=== PATIENT | male | born 1950 | race Caucasian/White ===

== ENCOUNTER 2022-03-13 11:32 | Emergency (ER) | payer MEDICARE ==
[~2022-03-13] VITALS: Ht 175.3 cm; Wt 72.7 kg
[2022-03-13] MEDS ORDERED: ibuprofen tablet 400 MG TABLET PO ONE (12:10)
[2022-03-13] MEDS ORDERED: ondansetron 4mg rapidly disintigrating tab PO ONE (12:30)
[2022-03-13] MEDS ORDERED: sulfamethoxazole/trimethoprim DS (800/160mg) tablet PO ONE (12:30)
[2022-03-13] MEDS ORDERED: ondansetron/PF 4mg/2ml inj IV ONE ×2 (14:20→17:39)
[2022-03-13] MEDS ORDERED: ceFAZolin 1000mg inj IV ONE (14:20)
[2022-03-13] MEDS ORDERED: morphine 4 MG/ML inj SYRINge IV ONE ×2 (14:20→17:39)
[2022-03-13] MEDS ORDERED: ceFAZolin inj. 2,000 MG in dextrose 5%-water 100 ML IV ONE (14:25)
[2022-03-13 14:41] LABS: BASOPHILS # (AUTO) 0.1 X10'3 (0-0.2); BASOPHILS % (AUTO) 0.3 % (0-1); EOSINOPHILS % (AUTO) 0.1 % (0-6); HEMATOCRIT 38.2 % (42.0-52.0); HEMOGLOBIN 12.5 g/dl (14.0-17.9); LYMPHOCYTES % (AUTO) 10.7 % (21-51); MEAN CORPUSCULAR HEMOGLOBIN 29.3 PG (27.0-31.0); MEAN CORPUSCULAR HGB CONC 32.7 g/dL (33.0-36.5); MEAN CORPUSCULAR VOLUME 89.6 FL (78-98); MEAN PLATELET VOLUME 8.1 FL (7.4-10.4); MONOCYTES # (AUTO) 1.3 X10'3 (0-0.9); MONOCYTES % (AUTO) 6.7 % (2-12); NEUTROPHILS # (AUTO) 15.5 X10'3 (1.8-7.7); NEUTROPHILS % (AUTO) 82.2 % (42-75); PLATELET COUNT 327 X10'3 (140-440); RED BLOOD COUNT 4.26 X10'6 (4.70-6.10); RED CELL DISTRIBUTION WIDTH 14.8 % (11.5-14.5); WHITE BLOOD COUNT 18.9 X10'3 (4.5-11.0)
[2022-03-13 14:49] LABS: APTT 30 SECONDS (22-32)
[2022-03-13 14:56] LABS: ALANINE AMINOTRANSFERASE 25 U/L (12-78); ALBUMIN/GLOBULIN RATIO 1.2 (1.1-1.5); ALKALINE PHOSPHATASE 66 IU/L (46-116); ANION GAP 12 (8-16); ASPARTATE AMINO TRANSFERASE 23 U/L (10-37); BILIRUBIN,TOTAL 0.3 MG/DL (0.1-1.0); BLOOD UREA NITROGEN 27 MG/DL (7-18); BUN/CREATININE RATIO 22.3 (5.4-32.0); CALCIUM 9.4 MG/DL (8.5-10.1); CHLORIDE 103 MMOL/L (99-107); CREATININE 1.21 MG/DL (0.60-1.10); GLUCOSE 109 MG/DL (70-104); POTASSIUM 3.9 MMOL/L (3.5-5.1); SODIUM 141 MMOL/L (135-145); TOTAL CARBON DIOXIDE 25.7 MMOL/L (24-32); TOTAL PROTEIN 7.3 G/DL (6.4-8.2); eGFR 59 ML/MIN
--- NOTE | 2022-03-13 16:30 | NUR ---
ATTEMPTED TO CONTACT [facility].
--- NOTE | 2022-03-13 16:47 | NUR ---
MULTIPLE ATTEMPTS MADE TO CONTACT [facility].
[2022-03-13] MEDS ORDERED: fentaNYL/PF 50MCG/1 ML 2ML syringe IV ONE ×2 (18:30→21:25)
--- NOTE | 2022-03-13 19:48 | NUR ---
PT IS AWAITING TRANSPORT TO [facility], REACH WAS HERE PREVIOUSLY PER TERESITA KOO AND PT REFUSED TO GO DUE TO COST
--- NOTE | 2022-03-13 20:00 | NUR ---
+CMS TO LEFT HAND, CAP REFILL BRISK, DRESSING TO ELBOW REMOVED, CLEAN 4X4 AND GUAZE WRAP PLACED, PT TOLERATED WELL, NO BLEEDING. PT IS AWARE OF PLAN TO TRANSFER, HAS NO QUESTIONS
--- NOTE | 2022-03-13 21:30 | NUR ---
REPORT GIVEN TO WILLIAM ODELL AT [facility], AMBULANCE WILL BE HERE IN APPROX 5MINUTES
--- NOTE | 2022-03-13 21:44 | NUR ---
Giovanni KOO placed splint prior to pt leaving with SANDIP, Yordan EMT and Andrea EMT, +CMS TO LEFT HAND
[2022-03-13 21:45] VITALS: BP 155/97
--- NOTE | 2022-03-13 21:51 | NUR ---
REPORT GIVEN TO KENDAL EMT AND NANCY EMT,
== END 2022-03-13 21:59 | disposition short-term general hospital (02) ==
LOC: ER 11:32
DX: S42.402A Unspecified fracture of lower end of left humerus, initial encounter for closed fracture (principal); S51.012A Laceration without foreign body of left elbow, initial encounter; W19.XXXA Unspecified fall, initial encounter; Y93.89 Activity, other specified; Y92.89 Other specified places as the place of occurrence of the external cause; Y99.8 Other external cause status
CPT/HCPCS: 29105; 36415; 71045; 73080; 73200; 80053; 85025; 85610; 85730; 93005; 96365; 96375; 96376; 99285; J0690; J2270; J2405; J3010; J7060; A6449

== ENCOUNTER 2023-04-19 18:36 | Emergency (ER) | payer MEDICARE ==
[~2023-04-19] VITALS: Ht 172.7 cm; Wt 86.4 kg
[2023-04-19 19:16] LABS: APTT 24 SECONDS (22-32); BASOPHILS # (AUTO) 0.1 X10'3 (0-0.2); BASOPHILS % (AUTO) 0.5 % (0-1); EOSINOPHILS # (AUTO) 0.3 X10'3 (0-0.9); EOSINOPHILS % (AUTO) 1.4 % (0-6); HEMATOCRIT 37.4 % (42.0-52.0); HEMOGLOBIN 12.5 g/dl (14.0-17.9); LYMPHOCYTES # (AUTO) 6.3 X10'3 (1.1-4.8); MEAN CORPUSCULAR HEMOGLOBIN 29.3 PG (27.0-31.0); MEAN CORPUSCULAR HGB CONC 33.4 g/dL (33.0-36.5); MEAN CORPUSCULAR VOLUME 87.8 FL (78-98); MEAN PLATELET VOLUME 7.8 FL (7.4-10.4); MONOCYTES # (AUTO) 1.4 X10'3 (0-0.9); MONOCYTES % (AUTO) 7.7 % (2-12); NEUTROPHILS % (AUTO) 55.4 % (42-75); PLATELET COUNT 362 X10'3 (140-440); PROTHROMBIN TIME 10.9 SECONDS (9.0-12.0); RED BLOOD COUNT 4.27 X10'6 (4.70-6.10); RED CELL DISTRIBUTION WIDTH 14.3 % (11.5-14.5); WHITE BLOOD COUNT 18.1 X10'3 (4.5-11.0)
[2023-04-19 19:19] LABS: ALANINE AMINOTRANSFERASE 36 U/L (12-78); ALBUMIN 3.6 G/DL (3.4-5.0); ALBUMIN/GLOBULIN RATIO 1.1 (1.1-1.5); ALKALINE PHOSPHATASE 59 IU/L (46-116); ANION GAP 12 (8-16); ASPARTATE AMINO TRANSFERASE 27 U/L (10-37); BILIRUBIN,TOTAL 0.4 MG/DL (0.1-1.0); BLOOD UREA NITROGEN 26 MG/DL (7-18); BUN/CREATININE RATIO 19.8 (10.0-20.0); CHLORIDE 102 MMOL/L (99-107); CREATININE 1.31 MG/DL (0.60-1.10); GLUCOSE 136 MG/DL (70-104); POTASSIUM 3.7 MMOL/L (3.5-5.1); SODIUM 138 MMOL/L (135-145); TOTAL CARBON DIOXIDE 24.5 MMOL/L (24-32); eCRCL 49 ML/MIN; eGFR 54 ML/MIN
[2023-04-19 19:26] LABS: LIPASE 27 U/L (16-77); PRO BRAIN NATRIURETIC PEPTIDE 221 PG/ML (0-125)
[2023-04-19 19:27] LABS: ETHANOL < 10 MG/DL (<10)
[2023-04-19 20:34] LABS: BILIRUBIN,URINE NEGATIVE (Neg); CLARITY,URINE CLEAR (Clear); COLOR,URINE YELLOW (Yellow); GLUCOSE, URINE NEGATIVE (Neg); KETONES,URINE NEGATIVE (Neg); LEUKOCYTE ESTERASE ,URINE NEGATIVE (Neg); NITRITES, URINE NEGATIVE (Neg); OCCULT BLOOD,URINE NEGATIVE (Neg); PROTEIN,URINE NEGATIVE (Neg); UA COLLECTION TYPE VOIDED; UROBILINOGEN,URINE 0.2 E.U/dL (0.2-1.0)
[2023-04-19 20:52] LABS: URINE AMPHETAMINE SCREEN NEGATIVE (Neg); URINE BARBITUATE SCREEN NEGATIVE (Neg); URINE BENZODIAZEPINES SCREEN NEGATIVE (Neg); URINE CANNABINOID SCREEN POSITIVE (Neg); URINE COCAINE SCREEN NEGATIVE (Neg); URINE METHADONE SCREEN NEGATIVE (Neg); URINE OPIATE SCREEN NEGATIVE (Neg); URINE PHENCYCLIDINE SCREEN NEGATIVE (Neg)
[2023-04-19] MEDS ORDERED: normal saline 1000ml 1,000 ML IV ONE (21:10)
[2023-04-19] MEDS ORDERED: CefTRIAXone/D5W-Rocephin 1gm 50 ML IV ONE (21:30)
[2023-04-19 22:17] VITALS: RESP 18; TEMP 98.8
[2023-04-20 00:59] VITALS: BP 135/62; PULSE 86; O2SAT 98
== END 2023-04-20 00:59 | disposition home or self-care (01) ==
LOC: ER 18:37
DX: R41.82 Altered mental status, unspecified (principal); D72.829 Elevated white blood cell count, unspecified; R41.3 Other amnesia
CPT/HCPCS: 36415; 70450; 71045; 72125; 72170; 73564; 80053; 80305; 80320; 81003; 83605; 83690; 83880; 84484; 85025; 85610; 85730; 87040; 93005; 96361; 96365; 99285; J0696; J7030